=== PATIENT | male | born 1960 | race African-American/Black ===

== ENCOUNTER 2019-02-22 18:19 | Inpatient (IN) | payer SELFPAY ==
[2019-02-22 18:50] LABS: Absolute Lymphocytes (CBC) 1.6 K/uL (0.7-4.9); Absolute Monocytes 0.6 K/uL (0.1-1.3); Absolute Neutrophil 4.3 K/uL (1.8-8.0); Basophils % 0.9 % (0-1.3); Eosinophils % 1.2 % (0-4.4); Hematocrit 38.6 % (39.6-49.0); Lymphocytes % 24.3 % (15.3-44.8); MPV 10.5 fL (7.6-11.3); RBC Red Blood Cell Count 4.16 M/uL (4.33-5.43)
[2019-02-22] MEDS ORDERED: LIDOCAINE 1% W/EPI 1:100,000 MDV 50 ML VIAL ONE (18:53)
--- NOTE | 2019-02-22 19:08 | RAD REPORT ---
EXAM DESCRIPTION: CT - CTHCSPWOC - 02/22/2019 6:56 pm CLINICAL HISTORY: Trauma, head and neck injury. PAIN COMPARISON: No comparisons TECHNIQUE: Axial 5 mm thick images of the head were obtained. Axial 2 mm thick images of the cervical spine were obtained with sagittal and coronal reconstruction images generated and reviewed. All CT scans are performed using dose optimization technique as appropriate and may include automated exposure control or mA/KV adjustment according to patient size. FINDINGS: CT HEAD WITHOUT CONTRAST: No acute hemorrhage, hydrocephalus or extra-axial collection is identified.No areas of brain edema or midline shift. The paranasal sinuses and mastoids are clear.The calvarium is intact. CT CERVICAL SPINE WITHOUT CONTRAST: No fracture or subluxation.Mild upper cervical spondylosis.No prevertebral soft tissues swelling is i dentified. IMPRESSION: No acute intracranial or cervical spine findings.
[2019-02-22] MEDS ORDERED: ONDANSETRON 4 MG/2 ML VIAL ONE ×3 (19:45→23:09)
[2019-02-22] MEDS ORDERED: MORPHINE 4 MG/ML SYR ONE ×2 (19:45→21:40)
--- NOTE | 2019-02-22 20:13 | RAD REPORT ---
EXAM DESCRIPTION: RAD - Knee Right 3 View - 02/22/2019 7:53 pm CLINICAL HISTORY: Syncope, fall, knee pain COMPARISON: None. FINDINGS: No fracture, dislocation or periosteal reaction.Small joint effusion evident. No joint spa ce narrowing. No foreign body or other soft tissue abnormality. IMPRESSION: Small joint effusion with no acute bone findings seen. Clinical concerns for internal derangement or occult bony injury could be further assessed with MR im aging.
--- NOTE | 2019-02-22 20:55 | EDPHYS ---
Physician Documentation [facility] Name: Jose Eduardo Cleary Age: 58 yrs Sex: Male : 1960 Arrival Date: 02/22/2019 Time: 18:23 Bed 27 Private MD: ED Physician Ritchie Garcia HPI: 02/22 18:29 This 58 yrs old Male presents to ER via Unassigned with complaints of syncope. ma2 18:29 The patient presents with feeling faint. Onset: The symptoms/episode began/occurred ma2 suddenly, 1 hour(s) ago. Context: occurred at a store. Associated signs and symptoms: Pertinent positives: head injury, EMS had low BP and bradycardia, Pertinent negatives: ataxia, chest pain, confusion, diaphoresis, head injury. Severity of symptoms: At their worst the symptoms were moderate in the emergency department the symptoms are unchanged. Severity of symptoms: in the emergency department the symptoms have resolved. The patient has not experienced similar symptoms in the past. Historical: - Allergies: 18:25 No Known Allergies; bp - Home Meds: 18:25 None [Active]; bp - PMHx: 18:25 None; bp - Immunization history:: Adult Immunizations up to date. - Social history:: Patient/guardian denies using alcohol, street drugs, The patient lives with family, Smoking status: Patient/guardian denies using tobacco. - Family history:: not pertinent. - Ebola Screening: : Patient negative for fever greater than or equal to 101.5 degrees Fahrenheit, and additional compatible Ebola Virus Disease symptoms Patient denies exposure to infectious person Patient denies travel to an Ebola-affected area in the 21 days before illness onset No symptoms or risks identified at this time. ROS: 18:29 Constitutional: Negative for fever, chills, and weight loss. ma2 18:29 Respiratory: Negative for shortness of breath, cough, wheezing, and pleuritic chest pain, Abdomen/GI: Negative for abdominal pain, nausea, diarrhea, and constipation, Back: Negative for injury and pain, Neuro: Negative for headache, weakness, numbness, tingling, and seizure, Psych: Negative for depression, anxiety, suicide ideation, homicidal ideation, and hallucinations, Endocrine: Negative for neck swelling, polydipsia, polyuria, polyphagia, and marked weight changes. 18:29 Cardiovascular: Positive for syncope, Negative for chest pain, edema, orthopnea, palpitations, paroxysmal nocturnal dyspnea. 18:29 All other systems are negative. Exam: 18:29 Constitutional: This is a well developed, well nourished patient who is awake, alert, ma2 and in no acute distress. Chest/axilla: Normal chest wall appearance and motion. Nontender with no deformity. No lesions are appreciated. Cardiovascular: Regular rate and rhythm with a normal S1 and S2. No gallops, murmurs, or rubs. Normal PMI, no JVD. No pulse deficits. Respiratory: Lungs have equal breath sounds bilaterally, clear to auscultation and percussion. No rales, rhonchi or wheezes noted. No increased work of breathing, no retractions or nasal flaring. Abdomen/GI: Soft, non-tender, with normal bowel sounds. No distension or tympany. No guarding or rebound. No evidence of tenderness throughout. MS/ Extremity: Pulses equal, no cyanosis. Neurovascular intact. Full, normal range of motion. Neuro: Awake and alert, GCS 15, oriented to person, place, time, and situation. Cranial nerves II-XII grossly intact. Motor strength 5/5 in all extremities. Sensory grossly intact. Cerebellar exam normal. Normal gait. Vital Signs: 18:25 BP 148 / 88; Pulse 68; Resp 14; Temp 98.3; Pulse Ox 100% ; bp 19:20 BP 110 / 78; Pulse 70; Resp 18; Temp 98.2; Pulse Ox 99% on R/A; ea 20:30 BP 115 / 68; Pulse 78; Resp 18; Temp 98; Pulse Ox 100% on R/A; ea 21:30 BP 110 / 70; Pulse 80; Resp 18; Pulse Ox 99% on R/A; ea 22:30 BP 102 / 83; Pulse 95; Resp 18; Pulse Ox 100% on R/A; ea 23:31 BP 104 / 58; Pulse 84; Resp 18; Pulse Ox 99% on R/A; ea 04 00:00 BP 105 / 50; Pulse 84; Resp 18; Pulse Ox 98% ; ea Laceration: 02/22 18:31 Wound Repair of 3cm ( 1.2in ) subcutaneous laceration to scalp. Distal ma2 neuro/vascular/tendon intact. Anesthesia: Local anesthetic administered with 10 mls of 1% lidocaine w/ Epi. Wound prep: Extensive cleansing. Skin closed with 5 1-0 Kirk using simple sutures and sterile technique. Dressed with Bacitracin, 4x4's. Patient tolerated well. MDM: 18:23 Patient medically screened. [facility] 18:29 Differential diagnosis: head injury, hyperventilation, hypovolemia, idiopathic ma2 dizziness. 20:49 Data reviewed: vital signs, nurses notes. Counseling: I had a detailed discussion with [facility] the patient and/or guardian regarding: the historical points, exam findings, and any diagnostic results supporting the discharge/admit diagnosis, the presence of at least one elevated blood pressure reading (>120/80) during this emergency department visit, the need for further work-up and treatment in the hospital. Response to treatment: the patient's symptoms have markedly improved after treatment. ED course: discussed with dr. winters . 02/22 18:26 Order name: UDS [facility] 02/22 18:26 Order name: Basic Metabolic Panel [facility] 02/22 18:26 Order name: CBC with Diff; Complete Time: 19:35 [facility] 02/22 18:26 Order name: Ckmb [facility] 02/22 18:26 Order name: CPK [facility] 02/22 18:26 Order name: Hepatic Function [facility] 02/22 18:26 Order name: Lipase [facility] 02/22 18:26 Order name: Magnesium [facility] 02/22 18:26 Order name: Protime (+inr) [facility] 02/22 18:26 Order name: Ptt, Activated [facility] 02/22 18:26 Order name: Troponin (emerg Dept Use Only) [facility] 02/22 21:13 Order name: Lipid Profile [facility] 02/22 21:13 Order name: Lipid Profile [facility] 02/22 21:13 Order name: Troponin I [facility] 02/22 18:26 Order name: CT Head C Spine; Complete Time: 19:35 [facility] 02/22 18:26 Order name: Dressing - Wound: please stapler to bedside ; Complete Time: 18:42 [facility] 02/22 18:26 Order name: Call for Old EKG [facility] 02/22 18:26 Order name: EKG; Complete Time: 18:27 [facility] 02/22 19:01 Order name: XRAY Knee RIGHT 3 view; Complete Time: 20:31 02/22 21:13 Order name: CONS Physician Consult [facility] 02/22 21:13 Order name: Echo with Doppler [facility] 02/22 21:13 Order name: Troponin I [facility] 02/22 21:13 Order name: Troponin I [facility] 02/22 23:17 Order name: Urine Dipstick--Ancillary (enter results) ar5 02/22 23:59 Order name: Urine Dipstick-Ancillary [facility] 02/22 18:26 Order name: Gloves, Sterile; Complete Time: 18:42 ma2 02/22 18:26 Order name: Setup Suture Tray; Complete Time: 18:42 ma2 02/22 18:26 Order name: Cardiac monitoring; Complete Time: 18:37 ma2 02/22 18:26 Order name: EKG - Nurse/Tech; Complete Time: 18:37 ma2 02/22 18:26 Order name: IV Saline Lock; Complete Time: 18:38 ma2 02/22 18:26 Order name: Labs collected and sent; Complete Time: 18:38 ma2 02/22 18:26 Order name: NPO; Complete Time: 18:38 ma2 02/22 18:26 Order name: O2 Per Protocol; Complete Time: 18:38 ma2 02/22 18:26 Order name: O2 Sat Monitoring; Complete Time: 18:38 ma2 02/22 18:26 Order name: Urine Dipstick-Ancillary (obtain specimen); Complete Time: 23:59 ma2 Administered Medications: 18:43 Drug: Lidocaine-Epinephrine -1%: (1:100,000) 10 ml {Note: AT B/S.} Volume: 20 ml; bp Route: Infiltration; 19:44 Drug: morphine 4 mg Route: IVP; Site: right antecubital; ea 20:00 Follow up: Response: No adverse reaction; Pain is decreased ea 19:44 Drug: Zofran 4 mg Route: IVP; Site: right antecubital; ea 20:00 Follow up: Response: Marked relief of symptoms ea 21:35 Drug: Zofran 4 mg Route: IVP; Site: right antecubital; ea 22:00 Follow up: Response: No adverse reaction; Pain is decreased ea 21:39 Drug: morphine 4 mg Route: IVP; Site: right antecubital; ea 22:00 Follow up: Response: No adverse reaction; Pain is decreased ea Disposition: 02/22/19 21:57 Hospitalization ordered by Ritchie Winters for Observation. Preliminary diagnosis is Syncope and collapse. - Bed requested for Telemetry/MedSurg (Inpatient). - Status is Observation. ss - Condition is Stable. - Problem is new. - Symptoms are unchanged. UTI on Admission? No Signatures: Dispatcher [employer] EDMS Adenike Shook RN RN ss Rona Piña RN RN ea Peltier, Brian, RN RN Ritchie Garcia MD MD ma2 Robles, Autumn ar5 Corrections: (The following items were deleted from the chart) 20:55 20:54 Hospitalization Ordered by Ritchie Winters MD for Observation. Preliminary ma2 diagnosis is Syncope and collapse. Bed requested for Telemetry/MedSurg (observation). Status is Observation. Condition is Stable. Problem is new. Symptoms are unchanged. UTI on Admission? No. ma2 23:54 21:57 Hospitalization Ordered by Ritchie Winters MD for Observation. Preliminary ar5 diagnosis is Syncope and collapse. Bed requested for Telemetry/MedSurg (observation). Status is Observation. Condition is Stable. Problem is new. Symptoms are unchanged. UTI on Admission? No. ma2 02/23 07:41 02/22 23:54 02/22/2019 21:57 Hospitalization Ordered by Ritchie Winters MD for ss Observation. Preliminary diagnosis is Syncope and collapse. Bed requested for [facility] ER HOLD. Status is Observation. Condition is Stable. Problem is new. Symptoms are unchanged. UTI on Admission? No. ar5 02/23 08:24 07:41 02/22/2019 21:57 Hospitalization Ordered by Ritchie Winters MD for Observation. ss Preliminary diagnosis is Syncope and collapse. Bed requested for Telemetry/MedSurg (Inpatient). Status is Observation. Condition is Stable. Problem is new. Symptoms are unchanged. UTI on Admission? No. ss
--- NOTE | 2019-02-22 20:55 | ER ---
Nurse's Notes [facility] Name: Jose Eduardo Cleary Age: 58 yrs Sex: Male : 1960 Arrival Date: 02/22/2019 Time: 18:23 Bed 27 Private MD: Diagnosis: Syncope and collapse Presentation: 02/22 18:25 Presenting complaint: EMS states: SYNCOPAL FALL AT [facility]. Transition of care: bp patient was not received from another setting of care. Onset of symptoms was February 22, 2019 at 18:00. Risk Assessment: Do you want to hurt yourself or someone else? Patient reports no desire to harm self or others. Initial Sepsis Screen: Does the patient meet any 2 criteria? No. Patient's initial sepsis screen is negative. Does the patient have a suspected source of infection? No. Patient's initial sepsis screen is negative. Care prior to arrival: Medication(s) given: ASA, 81 mg, x 4, IV initiated. 18 GA, in the right antecubital area. 18:25 Method Of Arrival: EMS: [facility] bp 18:25 Acuity: JAZIEL 3 bp Triage Assessment: 18:25 General: Appears in no apparent distress. comfortable, slender, Behavior is bp cooperative, appropriate for age, anxious. Pain: Complains of pain in back of head. EENT: No signs and/or symptoms were reported regarding the EENT system. Neuro: Level of Consciousness is awake, alert, obeys commands, Oriented to person, place, time, situation, Appropriate for age. Cardiovascular: Rhythm is sinus rhythm. Respiratory: Airway is patent Respiratory effort is even, unlabored, Respiratory pattern is regular, symmetrical. GI: No signs and/or symptoms were reported involving the gastrointestinal system. : No signs and/or symptoms were reported regarding the genitourinary system. Derm: No deficits noted. Musculoskeletal: Circulation, motion, and sensation intact. Range of motion: intact in all extremities. Historical: - Allergies: 18:25 No Known Allergies; bp - Home Meds: 18:25 None [Active]; bp - PMHx: 18:25 None; bp - Immunization history:: Adult Immunizations up to date. - Social history:: Patient/guardian denies using alcohol, street drugs, The patient lives with family, Smoking status: Patient/guardian denies using tobacco. - Family history:: not pertinent. - Ebola Screening: : Patient negative for fever greater than or equal to 101.5 degrees Fahrenheit, and additional compatible Ebola Virus Disease symptoms Patient denies exposure to infectious person Patient denies travel to an Ebola-affected area in the 21 days before illness onset No symptoms or risks identified at this time. Screenin:48 Abuse screen: Denies threats or abuse. Denies injuries from another. Nutritional bp screening: No deficits noted. Tuberculosis screening: No symptoms or risk factors identified. Fall Risk None identified. Assessment: 18:25 General: SEE TRIAGE NOTE. bp 19:01 Reassessment: PT RETURNED FROM RAD. bp 19:15 General: Appears in no apparent distress. Behavior is calm, cooperative, appropriate ea for age. Pain: Complains of pain in back of head. Neuro: Level of Consciousness is awake, alert, obeys commands, Oriented to person, place, time, situation. Cardiovascular: Patient's skin is warm and dry. Respiratory: Airway is patent Respiratory effort is even, unlabored, Respiratory pattern is regular, symmetrical. Derm: Skin is pink, warm \T\ dry. Injury Description: Laceration sustained to back of head is clean, 2.6 to 7.5 cm long. 20:00 Reassessment: Patient and/or family updated on plan of care and expected duration. Pain ea level reassessed. Patient is alert, oriented x 3, equal unlabored respirations, skin warm/dry/pink. 21:41 Reassessment: Patient and/or family updated on plan of care and expected duration. Pain ea level reassessed. Patient is alert, oriented x 3, equal unlabored respirations, skin warm/dry/pink. 22:50 Reassessment: Patient and/or family updated on plan of care and expected duration. Pain ea level reassessed. Pt resting with eyes closed respirations even and unlabored. Chest expansions even and symmetrical. 23:15 Reassessment: Patient and/or family updated on plan of care and expected duration. Pain ea level reassessed. Patient is alert, oriented x 3, equal unlabored respirations, skin warm/dry/pink. Pt complaining of nausea, Dr. Barclay notified, verbal order obtained for Zofran 4 mg q 4 hours. Medication administered, pt tolerated well. 02/23 00:50 Reassessment: Patient and/or family updated on plan of care and expected duration. Pain ea level reassessed. Patient is alert, oriented x 3, equal unlabored respirations, skin warm/dry/pink. Vital Signs: 02/22 18:25 BP 148 / 88; Pulse 68; Resp 14; Temp 98.3; Pulse Ox 100% ; bp 19:20 BP 110 / 78; Pulse 70; Resp 18; Temp 98.2; Pulse Ox 99% on R/A; ea 20:30 BP 115 / 68; Pulse 78; Resp 18; Temp 98; Pulse Ox 100% on R/A; ea 21:30 BP 110 / 70; Pulse 80; Resp 18; Pulse Ox 99% on R/A; ea 22:30 BP 102 / 83; Pulse 95; Resp 18; Pulse Ox 100% on R/A; ea 23:31 BP 104 / 58; Pulse 84; Resp 18; Pulse Ox 99% on R/A; ea 02/23 00:00 BP 105 / 50; Pulse 84; Resp 18; Pulse Ox 98% ; ea ED Course: 02/22 18:23 Patient arrived in ED. tw2 18:23 Ritchie Garcia MD is Attending Physician. ma2 18:25 Arm band placed on. bp 18:25 Patient has correct armband on for positive identification. Bed in low position. Call bp light in reach. Side rails up X2. Adult w/ patient. 18:25 Maintain EMS IV. Dressing intact. Good blood return noted. Site clean \T\ dry. Gauge \T\ bp site: 18 G R AC. 18:37 Daniel Robledo, RN is Primary Nurse. bp 18:45 Triage completed. bp 18:57 CT Head C Spine In Process Unspecified. EDMS 19:53 XRAY Knee RIGHT 3 view In Process Unspecified. EDMS 20:54 Ritchie Barclay MD is Hospitalizing Provider. ma2 21:56 Ritchie Barclay MD is Hospitalizing Provider. ma2 02/23 01:20 No provider procedures requiring assistance completed. Patient admitted, IV remains in ea place. Administered Medications: 02/22 18:43 Drug: Lidocaine-Epinephrine -1%: (1:100,000) 10 ml {Note: AT B/S.} Volume: 20 ml; bp Route: Infiltration; 19:44 Drug: morphine 4 mg Route: IVP; Site: right antecubital; ea 20:00 Follow up: Response: No adverse reaction; Pain is decreased ea 19:44 Drug: Zofran 4 mg Route: IVP; Site: right antecubital; ea 20:00 Follow up: Response: Marked relief of symptoms ea 21:35 Drug: Zofran 4 mg Route: IVP; Site: right antecubital; ea 22:00 Follow up: Response: No adverse reaction; Pain is decreased ea 21:39 Drug: morphine 4 mg Route: IVP; Site: right antecubital; ea 22:00 Follow up: Response: No adverse reaction; Pain is decreased ea Outcome: 20:54 Decision to Hospitalize by Provider. ma2 21:57 Decision to Hospitalize by Provider. ma2 23:00 Condition: stable ea 23:00 Instructed on the need for admit. 02/23 00:45 Admitted to ER Hold. Please see [facility] for further documentation. ea 08:14 Admitted to Tele accompanied by tech, via stretcher, room 210, Report called to kassidy Rodriguez RN 08:24 Patient left the ED. ss Signatures: Dispatcher [employer] EDShoshana Mccormick RN Adenike Diaz RN RN ss Wise, Tara, RN RN tw2 Rona Piña RN RN ea Peltier, Brian, RN Ritchie Villalpando MD MD ar2
[2019-02-22] MEDS ORDERED: ACETAMINOPHEN 500 MG TAB PO PRN (21:10)
[2019-02-22 21:59] LABS: Protime INR 1.11
[2019-02-22 22:15] LABS: ALT/SGPT 157 U/L (12-78); Albumin 3.7 g/dL (3.4-5.0); Alkaline Phosphatase 77 U/L (45-117); BUN Blood Urea Nitrogen 18 mg/dL (7-18); Bicarbonate 26 mmol/L (21-32); Bilirubin Direct 1.1 mg/dL (0-0.2); Bilirubin Total 1.3 mg/dL (0.2-1.0); CKMB Creatine Kinase MB 4.4 ng/mL (0.3-3.6); Creatine Phosphokinase 292 U/L (39-308); Glucose Level 114 mg/dL (74-106); Lipase 950 U/L (73-393); Potassium 3.9 mmol/L (3.5-5.1); Protein, Total 8.3 g/dL (6.4-8.2); Sodium Level 139 mmol/L (136-145); Troponin (Emerg Dept Use Only) < 0.02 ng/mL (0.0-0.045)
[2019-02-22 22:16] LABS: AST/SGOT 475 U/L (15-37)
[2019-02-22 23:00] LABS: Barbiturates NEGATIVE (NEGATIVE); Benzodiazepines NEGATIVE (NEGATIVE); Cocaine NEGATIVE (NEGATIVE); METHAMPHETAM NEGATIVE (NEGATIVE); Methadone NEGATIVE (NEGATIVE); Opiates POSITIVE (NEGATIVE); Phencyclidine NEGATIVE (NEGATIVE); THC Cannibis NEGATIVE (NEGATIVE)
[2019-02-22 23:59] LABS: Urine Blood TRACE (NEG); Urine Glucose NEGATIVE (NEG); Urine Protein 2+ (NEG); Urine pH 5.5 (5.0-7.0)
[2019-02-23] MEDS: ALPRAZOLAM 0.25 MG TABLET PO PRN (02:08)
[2019-02-23] MEDS ORDERED: ALPRAZOLAM 0.25 MG TABLET ONE (02:08)
[2019-02-23] MEDS: NA CHLORIDE 0.9% 1,000 ML IV SCH ×3 (07:00→17:00)
--- NOTE | 2019-02-23 08:47 | RAD REPORT ---
EXAM DESCRIPTION: US - Abdomen Exam Complete - 02/23/2019 7:18 am CLINICAL HISTORY: Abdominal pain COMPARISON: none FINDINGS: The liver has an increased echotexture. Hepatic cysts. Largest 4.6 The gallbladder is been removed. Common bile duct is dilated measuring 18 millimeters The pancreas appears grossly normal in size and echotexture. Pancreatic duct appears dilated. The right kidney measures 12 centimeters with a normal echotexture. The left kidney measures 9 centimeters with a normal echotexture. The spleen measures 10 centimeters. The abdominal aorta is ectatic with an AP diameter of 2.5 centimeters. The vena Cava appears unremark able IMPRESSION: Increased hepatic echotexture consistent with fatty infiltration Dilatation of the common and pancreatic ducts. CT scan with IV contrast is recommended to evaluate th e region of the pancreatic head
[2019-02-23] MEDS: ASPIRIN EC 81 MG TAB PO SCH (09:00)
[2019-02-23] MEDS: MORPHINE 4 MG/ML SYR IV PRN ×3 (09:46→21:04)
[2019-02-23] MEDS: ONDANSETRON 4 MG/2 ML VIAL IV PRN (09:47)
[2019-02-23] MEDS: ENOXAPARIN 40 MG/0.4 ML SQ SCH (10:33)
--- NOTE | 2019-02-23 10:48 | EKG ---
Test Date: 2019-02-22 Test Time: 18:22:47 [employer] [facility] Associate: BP MEASUREMENT RESULTS: Intervals: Rate: 65 MT: 188 QRSD: 84 QT: 422 QTc: 438 [place]: P: 73 MT: 188 QRS: 10 T: 43 INTERPRETIVE STATEMENTS: Normal sinus rhythm Biatrial enlargement Left ventricular hypertrophy Abnormal ECG No previous ECG available for comparison Electronically Signed On 02-23-19 10:47:50 CDT by Bear Yousif
[2019-02-23 10:50] LABS: Absolute Lymphocytes (CBC) 0.8 K/uL (0.7-4.9); Absolute Monocytes 0.5 K/uL (0.1-1.3); Absolute Neutrophil 4.9 K/uL (1.8-8.0); Basophils % 0.4 % (0-1.3); Eosinophils % 1.3 % (0-4.4); Hematocrit 41.2 % (39.6-49.0); MPV 10.2 fL (7.6-11.3); Monocytes % 7.7 % (3.3-12.3); RBC Red Blood Cell Count 4.55 M/uL (4.33-5.43)
[2019-02-23 10:54] LABS: Protime INR 1.06
--- NOTE | 2019-02-23 10:56 | ECHO ---
HEIGHT: 6 ft 0 in WEIGHT: 155 lb 0 oz DATE OF STUDY: 02/23/[address]: 2-DIMENSIONAL: YES M.MODE: YES DOPPLER: YES COLOR FLOW: YES TDS: NO PORTABLE: NO DEFINITY: NO BUBBLE STUDY: NO DIAGNOSIS: SYNCOPE CARDIAC HISTORY: CATHERIZATION: NO SURGERY: NO PROSTHETIC VALVE: NO PACEMAKER: NO MEASUREMENTS (cm) DIASTOLIC (NORMALS) SYSTOLIC (NORMALS) IVSd 1.0 (0.6-1.2) LA Diam 3.2 (1.9-4.0) LVEF 50% LVIDd 4.2 (3.5-5.7) LVIDs 3.1 (2.0-3.5) %FS 25% LVPWd 1.1 (0.6-1.2) Ao Diam 3.4 (2.0-3.7) 2 DIMENSIONAL ASSESSMENT: RIGHT ATRIUM: NORMAL LEFT ATRIUM: NORMAL RIGHT VENTRICLE: NORMAL LEFT VENTRICLE: NORMAL TRICUSPID VALVE: NORMAL MITRAL VALVE: NORMAL PULMONIC VALVE: NORMAL AORTIC VALVE: NORMAL PERICARDIAL EFFUSION: NONE AORTIC ROOT: NORMAL LEFT VENTRICULAR WALL MOTION: NORMAL. DOPPLER/COLOR FLOW: MILD MITRAL REGURGITATION. TRACE TRICUSPID REGURGITATION. NORMAL RIGHT VENTRICULAR SYSTOLIC PRESSURE. COMMENTS: NORMAL 2D ECHOCARDIOGRAM. MILD MITRAL REGURGITATION. TRACE TRICUSPID REGURGITATION. TECHNOLOGIST: EDUARDO AYALA
[2019-02-23 11:29] LABS: ALT/SGPT 168 U/L (12-78); Albumin 3.9 g/dL (3.4-5.0); Alkaline Phosphatase 76 U/L (45-117); BUN Blood Urea Nitrogen 16 mg/dL (7-18); Bicarbonate 26 mmol/L (21-32); Glucose Level 110 mg/dL (74-106); Lipase 258 U/L (73-393); Magnesium 2.2 mg/dL (1.8-2.4); Phosphorus 3.3 mg/dL (2.5-4.9); Protein, Total 8.4 g/dL (6.4-8.2); Sodium Level 140 mmol/L (136-145)
[2019-02-23 11:31] LABS: AST/SGOT 390 U/L (15-37)
[2019-02-23] MEDS ORDERED: LORazepam 2 MG/ML VIAL IV ONE (13:13)
--- NOTE | 2019-02-23 13:21 | P.HP ---
Certification for Inpatient Patient admitted to: Inpatient With expected LOS: >2 Midnights Patient will require the following post-hospital care: None Practitioner: I am a practitioner with admitting privileges, knowledge of patient current condition, hospital course, and medical plan of care. Services: Services provided to patient in accordance with Admission requirements found in Title 42 Section 412.3 of the Code of Federal Regulations Patient History Date of Service: 02/22/19 Reason for admission: SYNCOPE AND COLLAPSE History of Present Illness: Patient is a 58-year-old gentleman [facility]. He finally came around but had a scalp laceration. He was unresponsive for a couple of minutes. Patient was brought to the ER by EMS. He was worked up in the emergency room and was found to be hypotensive and bradycardic initially. His vital signs improved. However, he is still feeling dizzy and has a headache. Unsure as to why he had the sudden collapse. he contributes some of it to the fact that he has been working quite a bit. In the last 2 weeks he states he work almost 100 hr. He will be admitted to the hospital for further workup Allergies aspirin Allergy (Verified 02/23/19 09:22) Itching iodine Allergy (Verified 02/23/19 13:09) Anaphylaxis Home Medications: NK [No Home Meds] 02/23/19 - Past Medical/Surgical History Has patient received pneumonia vaccine in the past: No Past Medical History: Patient denies medical history Past Surgical History: Patient denies surgical history - Family History Father Family History: Reviewed- Non-Contributory - Social History Smoking Status: Never smoker Alcohol use: Yes CD- Drugs: No Caffeine use: Yes Place of Residence: Home Review of Systems 10-point ROS is otherwise unremarkable Physical Examination - Vital Signs Temperature: 97.6 F Blood Pressure: 171/100 Pulse: 63 Respirations: 20 Pulse Ox (%): 98 - Physical Exam General: Alert, In no apparent distress, Oriented x3 HEENT: Atraumatic, PERRLA, Mucous membr. moist/pink, EOMI, Sclerae nonicteric Neck: Supple, 2+ carotid pulse no bruit, No LAD, Without JVD or thyroid abnormality Respiratory: Clear to auscultation bilaterally, Normal air movement Cardiovascular: Regular rate/rhythm, Normal S1 S2 Gastrointestinal: Normal bowel sounds, Soft and benign, Non-distended, No tenderness Musculoskeletal: No clubbing, No swelling, No tenderness Integumentary: No rashes Neurological: Normal gait, Normal speech, Normal strength at 5/5 x4 extr, Normal tone, Sensation intact, Cranial nerves 3-12 intact, Normal affect Lymphatics: No axilla or inguinal lymphadenopathy - Studies Laboratory Data (last 24 hrs) 02/22/19 21:40: PT 13.0 H, INR 1.11, APTT 29.0 02/22/19 21:40: Sodium 139, Potassium 3.9, BUN 18, Creatinine 1.42 H, Glucose 114 H, Magnesium 2.0, Total Bilirubin 1.3 H, AST 475 H*, ALT 157 H, Alkaline Phosphatase 77, Lipase 950 H 02/22/19 18:35: WBC 6.6, Hgb 12.9 L, Hct 38.6 L, Plt Count 177 Assessment & Plan - Problems (Diagnosis) (1) Syncope and collapse Current Visit: Yes Status: Acute (2) Scalp laceration Current Visit: Yes Status: Acute - Plan The plan: 1. Echocardiogram 2. Carotid Doppler 3. cardiac workup 4. monitor on telemetry 5. Monitor electrolytes 6. GI/DVT prophylaxis Discharge Plan: Home Plan to discharge in: Greater than 2 days - Advance Directives Does patient have a Living Will: No Does patient have a Durable POA for Healthcare: No - Code Status/Comfort Care Code Status Assessed: Yes Code Status: Full Code Critical Care: No Time Spent Managing PTS Care (In Minutes): 40
--- NOTE | 2019-02-23 14:50 | CON ---
History Of Present Illness: Mr. Cleary was having a normal day, went to work. Ate, drink normally. Function fine at work. About 4:30 p.m. yesterday, he was standing in [employer]. 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 He felt like he needed to sit down, started walking towards a chair, did not make it. He was uncons cious for a minute or two. No bladder or bowel incontinence. He has a laceration on the left side o f his scalp, injury to his right knee with an effusion, but no fractures. CT of the head and spine s hows no abnormalities. The patient has no previous history of syncope. He has a history of some kin d of kidney disease. 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 Apparently he had plasmapheresis some years ago and apparently now he does not need to see any kidney doctors. He has never had myocardial infarction or stroke. His home medications a re none listed. He has no allergies. He smoked cigars occasionally. Drinks alcohol on weekends, us ually 1 glass of wine limit. No illegal drug use. No previous history of syncope, head injury, seiz ure disorder. Physical Examination: General: He is alert, oriented, pleasant, not in distress. Lungs: Clear. Cardiac: Normal. Neck: Carotids, no bruit. Extremities: Normal. Impression: My impression is that the patient probably had vasodepressor syncope. It can sometimes be triggered by standing in one position for a long time. I think he should have an event monitor, e cho and a carotid Doppler and if we do not find anything, we can encourage him to stay well hydrated and do outpatient testing. So far on telemetry, there has not been anything. On his blood work, tro ponins are normal, but liver function tests are abnormal. Total bilirubin and direct bilirubin are b oth mildly elevated and the AST is elevated at 475. Lipase is elevated. I wonder if he has some underlying abdominal process going and number of things are possible that may have contributed greatl y to his vasodepressor syncope. SH/MODL Voice ID: [id number] Report ID: [id number]
--- NOTE | 2019-02-23 18:53 | RAD REPORT ---
EXAM DESCRIPTION: MRI - Mri Abdomen W/Wo Cont - 02/23/2019 6:26 pm CLINICAL HISTORY: Pancreatic mass, pancreatic and biliary duct abnormal dilatation, abnormal ultraso und study ; prior cholecystectomy COMPARISON: Ultrasound February 23 TECHNIQUE: Multiplanar imaging of the abdomen performed using T1 weighted, T2 weighted, T1 inphase/o ut of phase imaging, T2 haste fat saturation and postcontrast T1 fat saturation sequencing. A 16 mill iliter MultiHance contrast volume was utilized. FINDINGS: Liver is normal in size. There are numerous variably sized oval and round masses scattered throughout the liver parenchyma. Most are under 1 centimeter in size. Largest is 5 cm in the postero superior right lobe. The show homogeneous hypointense T1 signal and homogeneous hyperintense T2 signa l. No solid mass or enhancing mass of the liver parenchyma seen. No rim or central enhancement on pos tcontrast imaging. No splenic abnormality. No renal or adrenal suspicious finding. Significant extrahepatic biliary tree dilatation is present up to 19 mm in diameter. Pancreatic duct is dilated as well. Dilatation extends all the way into the head of the pancreas to the sphincter of Oddi region. No mass in the head of the pancreas identified. No duodenal mass or wall thickening. No duct stones are identifiable. Body and tail of the pancreas show no suspicious findings. There is no peripancreatic edema. Oral vessels show normal enhancement pattern. No ascites or lymphadenopathy. Imaged portions of the b owel show no suspicious findings. IMPRESSION: Biliary tree dilatation to 18 mm with dilatation of the pancreatic duct. Dilatation extends all the way to the sphincter of Oddi. No pancreatic or duodenal mass or focal abno rmality. Biliary tree dilatation can occur following cholecystectomy. However, dilatation does not usually jan ched this degree an usually does not include pancreatic duct dilatation. No duct stone is identified. Patient could have an ampullary mass that is below MR resolution or a st ricture at the ampulla. Direct visualization with ERCP may be needed. Multiple benign liver cysts.
--- NOTE | 2019-02-23 19:01 | P.PN ---
Subjective Date of Service: 02/23/19 Chief Complaint: SYNCOPE AND COLLAPSE Pt seen and examined at bedside. Chart reviewed. Case DW in detail with GI and radiology. Denies Fever, chill, N/V or any other concerns. Review of Systems 10-point ROS is otherwise unremarkable Physical Examination - Vital Signs Temperature: 98.1 F Blood Pressure: 153/96 Pulse: 71 Respirations: 20 Pulse Ox (%): 95 - Physical Exam General: Alert, In no apparent distress HEENT: Atraumatic, PERRLA, EOMI, Scleral icterus Neck: Supple, JVD not distended Respiratory: Clear to auscultation bilaterally, Normal air movement Cardiovascular: Regular rate/rhythm, Normal S1 S2 Gastrointestinal: Normal bowel sounds, No tenderness, Tenderness (RUQ ) Musculoskeletal: No tenderness Integumentary: No rashes Neurological: Normal speech, Normal tone, Normal affect Lymphatics: No axilla or inguinal lymphadenopathy - Studies Laboratory Data (last 24 hrs) 02/22/19 21:40: PT 13.0 H, INR 1.11, APTT 29.0 02/22/19 21:40: Sodium 139, Potassium 3.9, BUN 18, Creatinine 1.42 H, Glucose 114 H, Magnesium 2.0, Total Bilirubin 1.3 H, AST 475 H*, ALT 157 H, Alkaline Phosphatase 77, Lipase 950 H Medications List Reviewed: Yes Assessment And Plan - Current Problems (Diagnosis) (1) Elevated LFTs Current Visit: Yes Status: Acute Plan: Elevated LFt's with Abnormal Abd US with CBD dilation at 18mm and pancreatic Duct dilation 10mm -MRI of the abdomen with CBD dilation noted again. Concern for stricture vs mass at the ampula -Started transfer to the [facility] for ERCP for possible evaluation of CBD and pancreatic duct. (2) Scalp laceration Current Visit: Yes Status: Acute Plan: S.P Fall with scalp Laceration -Stable now -Site C/D/I with suture in place Qualifiers: Encounter type: initial encounter Qualified Code(s): S01.01XA - Laceration without foreign body of scalp, initial encounter (3) Syncope and collapse Current Visit: Yes Status: Acute Plan: Syncopal Work up most likely 2.2 to Cardiac vs abdominal infection -ECHO, Carotid Doppler pending -Cardiology consulted. appreciate Reccs -No further workup -PT/OT consulted. Discharge Plan: Home Plan to discharge in: Greater than 2 days - Code Status/Comfort Care Code Status Assessed: Yes Critical Care: No
--- NOTE | 2019-02-23 19:07 | RAD REPORT ---
EXAM DESCRIPTION: - CP - 02/23/2019 6:50 pm CLINICAL HISTORY: Syncope COMPARISON: None. TECHNIQUE: Real-time sonographic evaluation of both carotid systems was performed. Cuellar scale and Do ppler interrogation were performed with waveform tracing bilaterally. FINDINGS: Normal high resistance waveforms are noted in both external carotid arteries. The common c arotid arteries and internal carotid arteries show normal low resistance waveforms. No significant plaque formation is seen. Peak systolic and end diastolic velocity values and the ICA/ CCA ratios are in the non-hemodynamically significant range. Antegrade flow seen in both vertebral arteries. Velocity values and ratios were recorded and are retained in the patient's imaging records. IMPRESSION: No significant atherosclerotic changes noted. No evidence of a hemodynamically significant stenosis.
--- NOTE | 2019-02-23 21:12 | RAD REPORT ---
EXAM DESCRIPTION: MRI - Cholangiogram - 02/23/2019 8:46 pm CLINICAL HISTORY: Abnormal liver function, biliary tree dilatation, abnormal ultrasound COMPARISON: Abdomen ultrasound same date TECHNIQUE: Axial and coronal heavily T2 weighted sequences were obtained. Coronal T2 HASTE fat satur ation static and coronal multiplane reconstruction imaging generated and reviewed. Horizontal and juan jose tical axis rotational views obtained using maximum intensity projection (MIP) protocol. FINDINGS: Intrahepatic and extrahepatic biliary tree dilatation identified. Common bile duct is dila shoaib up to 18 mm with dilatation extending into the head of the pancreas. There is no duct stone, stri cture or mass. Pancreatic duct dilatation is present. Multiple liver cysts are identified. Cholecystectomy clip artifact is present. IMPRESSION: Biliary tree dilatation to 18 mm with no stricture, mass or duct stone. Pancreatic duct dilatation. Stricture at the ampulla or small mass at or near the ampulla is possible. Biliary tree dilatation fo llowing cholecystectomy is not unusual but does not usually occur to this degree nor include pancreat ic duct dilatation.
[2019-02-24] MEDS: ALPRAZOLAM 0.25 MG TABLET PO PRN ×2 (01:25→21:41)
[2019-02-24] MEDS: NA CHLORIDE 0.9% 1,000 ML IV SCH ×3 (01:29→23:48)
[2019-02-24] MEDS: ASPIRIN EC 81 MG TAB PO SCH (09:02)
[2019-02-24] MEDS: MORPHINE 4 MG/ML SYR IV PRN ×2 (09:03→13:55)
[2019-02-24] MEDS: ONDANSETRON 4 MG/2 ML VIAL IV PRN (09:03)
[2019-02-24] MEDS: ENOXAPARIN 40 MG/0.4 ML SQ SCH (09:04)
--- NOTE | 2019-02-24 11:36 | PN ---
Mr. Cleary is 58. He has had no arrhythmia. Normal EKG. Normal enzymes. Normal carotid ultrasound, cardiac ultrasound and other vascular studies. At this point the cause of his syncope is uncertain, it most likely could be a vasodepressor syncope. We do not really know why his liver functions were elevated, so looking into that might be valuable to do. I am not sure [facility]. In my opinion syncope workup is completed and I suspect he had vasovagal or vasodep ressor syncope, perhaps from abdominal process. RUBI/NISA Voice ID: [id number] Report ID: [id number]
[2019-02-24 13:38] LABS: Absolute Lymphocytes (CBC) 1.1 K/uL (0.7-4.9); Absolute Monocytes 0.4 K/uL (0.1-1.3); Absolute Neutrophil 3.3 K/uL (1.8-8.0); Basophils % 0.8 % (0-1.3); Eosinophils % 1.2 % (0-4.4); Lymphocytes % 21.8 % (15.3-44.8); MPV 10.1 fL (7.6-11.3); Monocytes % 8.4 % (3.3-12.3); RBC Red Blood Cell Count 3.87 M/uL (4.33-5.43)
[2019-02-24 13:57] LABS: Bilirubin Total 0.5 mg/dL (0.2-1.0); Carcinoembryonic Antigen 3.9 ng/mL (0-5.0); Potassium 4.2 mmol/L (3.5-5.1); Protein, Total 7.1 g/dL (6.4-8.2)
--- NOTE | 2019-02-24 15:44 | P.PN ---
Subjective Date of Service: 02/24/19 Chief Complaint: SYNCOPE AND COLLAPSE Pt seen and examined at bedside. Chart reviewed. Case DW in detail with GI and radiology. Pending bed at [facility]. Has been accepted by GI and hospitalist. Denies Fever, chill, N/V or any other concerns. Review of Systems 10-point ROS is otherwise unremarkable Physical Examination - Vital Signs Temperature: 98.3 F Blood Pressure: 148/87 Pulse: 65 Respirations: 20 Pulse Ox (%): 97 - Physical Exam General: Alert, In no apparent distress HEENT: Atraumatic, PERRLA, EOMI, Scleral icterus Neck: Supple, JVD not distended Respiratory: Clear to auscultation bilaterally, Normal air movement Cardiovascular: Regular rate/rhythm, Normal S1 S2 Gastrointestinal: Normal bowel sounds, Tenderness Musculoskeletal: No tenderness Integumentary: No rashes Neurological: Normal speech, Normal tone, Normal affect Lymphatics: No axilla or inguinal lymphadenopathy - Studies Medications List Reviewed: Yes Assessment And Plan - Current Problems (Diagnosis) (1) Elevated LFTs Current Visit: Yes Status: Acute Plan: Elevated LFt's with Abnormal Abd US with CBD dilation at 18mm and pancreatic Duct dilation 10mm -MRI of the abdomen with CBD dilation. Concern for stricture vs mass at the ampulla or pancreatic head -Started transfer to the [facility] for ERCP for possible evaluation of CBD and pancreatic duct. -Pending Bed at (2) Scalp laceration Current Visit: Yes Status: Acute Plan: S.P Fall with scalp Laceration -Stable now -Site C/D/I with suture in place Qualifiers: Encounter type: initial encounter Qualified Code(s): S01.01XA - Laceration without foreign body of scalp, initial encounter (3) Syncope and collapse Current Visit: Yes Status: Acute Plan: Syncopal Work up most likely 2.2 to Cardiac vs abdominal infection -ECHO, Carotid Doppler pending -Cardiology consulted. appreciate Reccs -No further workup -PT/OT consulted. Discharge Plan: Home Plan to discharge in: Greater than 2 days - Code Status/Comfort Care Code Status Assessed: Yes Critical Care: No
[2019-02-24] MEDS: TOPIRAMATE 25 MG TAB PO SCH ×2 (17:00→20:41)
[2019-02-25] MEDS: TOPIRAMATE 25 MG TAB PO SCH ×3 (00:13→08:59)
[2019-02-25 04:55] LABS: Absolute Lymphocytes (CBC) 1.2 K/uL (0.7-4.9); Absolute Monocytes 0.6 K/uL (0.1-1.3); Absolute Neutrophil 4.1 K/uL (1.8-8.0); Basophils % 0.7 % (0-1.3); Eosinophils % 1.3 % (0-4.4); Hematocrit 33.7 % (39.6-49.0); Lymphocytes % 20.3 % (15.3-44.8); MPV 10.6 fL (7.6-11.3); Monocytes % 10.1 % (3.3-12.3); RBC Red Blood Cell Count 3.73 M/uL (4.33-5.43)
[2019-02-25 05:04] LABS: Albumin 2.9 g/dL (3.4-5.0); Bilirubin Total 0.4 mg/dL (0.2-1.0); Protein, Total 6.7 g/dL (6.4-8.2)
[2019-02-25] MEDS: ENOXAPARIN 40 MG/0.4 ML SQ SCH (08:58)
[2019-02-25] MEDS: ASPIRIN EC 81 MG TAB PO SCH (08:58)
[2019-02-25] MEDS: NA CHLORIDE 0.9% 1,000 ML IV SCH (09:01)
--- NOTE | 2019-02-25 15:54 | P.DS ---
Admission Date: 02/22/19 Discharge Date: 02/25/19 Disposition: AMA-LEFT AGAINST MEDICAL ADVIC Reason for Admission: SYNCOPE AND COLLAPSE - Problems (1) Elevated LFTs Status: Acute (2) Scalp laceration Status: Acute Qualifiers: Encounter type: initial encounter Qualified Code(s): S01.01XA - Laceration without foreign body of scalp, initial encounter (3) Syncope and collapse Status: Acute Brief History of Present Illness: Patient is a 58-year-old gentleman [facility] and [facility]. He finally came around but had a scalp laceration. He was unresponsive for a couple of minutes. Patient was brought to the ER by EMS. He was worked up in the emergency room and was found to be hypotensive and bradycardic initially. His vital signs improved. However, he is still feeling dizzy and has a headache. Unsure as to why he had the sudden collapse. he contributes some of it to the fact that he has been working quite a bit. In the last 2 weeks he states he work almost 100 hr. He will be admitted to the hospital for further workup Hospital Course: Overall the patient remained stable Patient initially admitted to the hospital for syncope episode that was most likely secondary to vasovagal symptom. Cardiology was consulted. Patient had extensive workup done for syncope here in the hospital. Brain MRI along with head CT, carotid Dopplers and echocardiogram were all within normal limits. Cardiology did clear the patient to be discharged home. Patient however in the initial labs had elevated LFTs along with T. bili Hernandez and thus abdominal ultrasound was done. Abdominal ultrasound was consistent with CBD and pancreatic duct dilation and concern for ampullary stricture versus mass. MRCP and an MRI of the abdomen was done which was again concerning for ampullary stricture versus mass. At the time GI was consulted. GI however stated that patient will require higher level of care where he can get an ERCP done and possibly biopsy of the mass versus stricture. Patient thus was referred over to [facility] for further treatment. Patient was accepted at [facility] however is pending bed. Patient at that time decided that he no longer wants to wait here in the hospital and will leave the hospital against medical advise that he thinks that he would here in the hospital if he stays any longer as he was feeling very claustrophobic. An attempt was made to educate the patient extensively on the need to stay here in the hospital and pursue further treatment for possible ampullary stricture versus mass. Patient stated that he understands completely his risk of leaving against medical advise but would like to do so anyways. Vital Signs/Physical Exam: Temp Pulse Resp BP Pulse Ox 97.8 F 67 16 157/88 H 98 02/25/19 08:00 02/25/19 08:00 02/25/19 08:00 02/25/19 08:00 02/25/19 08:00 General: Alert, In no apparent distress HEENT: Atraumatic, PERRLA, EOMI Neck: Supple, JVD not distended Respiratory: Clear to auscultation bilaterally, Normal air movement Cardiovascular: Regular rate/rhythm, Normal S1 S2 Gastrointestinal: Normal bowel sounds, No tenderness Musculoskeletal: No tenderness Integumentary: No rashes Neurological: Normal speech, Normal tone, Normal affect Lymphatics: No axilla or inguinal lymphadenopathy Laboratory Data at Discharge: WBC 6.0 K/uL (4.3-10.9) D 02/25/19 04:16 Hgb 11.7 g/dL (13.6-17.9) L 02/25/19 04:16 Hct 33.7 % (39.6-49.0) L 02/25/19 04:16 Plt Count 120 K/uL (152-406) L 02/25/19 04:16 PT 12.5 SECONDS (9.5-12.5) 02/23/19 10:27 INR 1.06 02/23/19 10:27 APTT 29.4 SECONDS (24.3-36.9) 02/23/19 10:27 Sodium 140 mmol/L (136-145) 02/25/19 04:16 Potassium 4.0 mmol/L (3.5-5.1) 02/25/19 04:16 BUN 11 mg/dL (7-18) 02/25/19 04:16 Creatinine 1.09 mg/dL (0.55-1.3) 02/25/19 04:16 Glucose 121 mg/dL (74-106) H 02/25/19 04:16 Phosphorus 3.3 mg/dL (2.5-4.9) 02/23/19 10:27 Magnesium 2.2 mg/dL (1.8-2.4) 02/23/19 10:27 Total Bilirubin 0.4 mg/dL (0.2-1.0) 02/25/19 04:16 AST 160 U/L (15-37) H 02/25/19 04:16 ALT 126 U/L (12-78) H 02/25/19 04:16 Alkaline Phosphatase 74 U/L (45-117) 02/25/19 04:16 Troponin I < 0.02 ng/mL (0.0-0.045) 02/23/19 10:27 Triglycerides 72 mg/dL (<150) 02/23/19 04:15 Cholesterol 162 mg/dL (<200) 02/23/19 04:15 HDL Cholesterol 56 mg/dL (40-60) 02/23/19 04:15 Cholesterol/HDL Ratio 2.89 02/23/19 04:15 Lipase 258 U/L (73-393) 02/23/19 10:27 Home Medications: NK [No Home Meds] 02/23/19
[2019-02-28 03:42] LABS: HBsAG Nonreactive (Nonreactive); Hepatitis A IgM Antibody Nonreactive
[2019-03-02 14:33] LABS: Hep C Virus RNA (PCR)log 5.97 log IU/mL
== END 2019-02-25 10:50 | disposition left against medical advice (07) | DRG 983 ==
LOC: ER 18:19 → ERHOLD 22:48 → 2ND 02-23 08:03
PROVIDERS: ADMIT Hospitalist; ATTEND Family Medicine
PROC: 0JQ00ZZ Repair Scalp Subcutaneous Tissue and Fascia, Open Approach (ICD-10-PCS; principal; 2019-02-22)
DX: R55 Syncope and collapse (principal); R94.5 Abnormal results of liver function studies; S01.01XA Laceration without foreign body of scalp, initial encounter; W18.39XA Other fall on same level, initial encounter; Y93.01 Activity, walking, marching and hiking; Y92.512 Supermarket, store or market as the place of occurrence of the external cause; Y99.8 Other external cause status; M25.461 Effusion, right knee; F17.290 Nicotine dependence, other tobacco product, uncomplicated; I95.9 Hypotension, unspecified; R00.1 Bradycardia, unspecified
CPT/HCPCS: 36415; 70450; 72125; 74181; 76700; 80048; 80053; 80061; 80074; 80076; 80307; 80329; 81003; 82378; 82550; 82553; 83690; 83735; 84100; 84484; 85025; 85610; 85730; 86301; 87522; 93005; 93306; 93880; 96374; 96375; 99285; J1650; J2405; J7030

== ENCOUNTER 2019-02-27 10:53 | Emergency (ER) | payer SELFPAY ==
--- OUTSIDE RECORDS SUMMARY | 2019-02-27 10:55 | XMS REPORT | Clinical Summary ---
:1960 Author Organization [facility] Address [address] [place] [address] Care Team Providers Name Role Phone Unavailable Primary Care Provider Unavailable Allergies Not on File Medications Not on file Active Problems Not on file Encounters Date Type Specialty Care Team Description 02/25/2019 Anesthesia Event Gastroenterology Regla Uriarte CRNA after 02/26/2018 Social History Tobacco Use Types Packs/Day Years Used Date Never Assessed Sex Assigned at Date Recorded Not on file Job Start Date Occupation Industry Not on file Not on file Not on file Travel History Travel Start Travel End No recent travel history available. Last Filed Vital Signs Not on file Plan of Treatment Not on file Results Not on fileafter 02/26/2018
--- NOTE | 2019-02-27 11:02 | EDPHYS ---
Physician Documentation [facility] Name: Jose Eduardo Cleary Age: 58 yrs Sex: Male : 1960 Arrival Date: 02/27/2019 Time: 10:55 Bed Waiting Private MD: ED Physician Jas Rausch HPI: 02/27 11:01 This 58 yrs old Black Male presents to ER via Ambulatory with complaints of Staple kb Removal. 11:01 The patient has keyla on the scalp. Previous treatment: The patient was initially kb treated 5 day(s) ago, the care was rendered at [facility], Treatment type: The patient's original treatment included keyla. Sutures/keyla progress: The patient has no c/o's. The wound is well-healing with no redness, swelling, discharge, or dehiscence reported. The patient has not experienced similar symptoms in the past. The patient has been recently seen at the [facility] Emergency Department, The patient has been recently been admitted at [facility], was discharged last week. Historical: - Allergies: 10:58 No Known Allergies; aa5 - PMHx: 10:58 None; aa5 - PSHx: 10:58 None; aa5 - Immunization history:: Adult Immunizations up to date. - Ebola Screening: : No symptoms or risks identified at this time. - Social history:: Smoking status: unknown. ROS: 11:01 Constitutional: Negative for fever, chills, and weight loss, Neck: Negative for injury, kb pain, and swelling, Cardiovascular: Negative for chest pain, palpitations, and edema, Respiratory: Negative for shortness of breath, cough, wheezing, and pleuritic chest pain, Abdomen/GI: Negative for abdominal pain, nausea, vomiting, diarrhea, and constipation, : Negative for injury, bleeding, discharge, and swelling, MS/Extremity: Negative for injury and deformity, Neuro: Negative for headache, weakness, numbness, tingling, and seizure. 11:01 Skin: Positive for laceration(s), of the scalp, keyla . Exam: 11:01 Constitutional: This is a well developed, well nourished patient who is awake, alert, kb and in no acute distress. Head/Face: Normocephalic, atraumatic. Chest/axilla: Normal chest wall appearance and motion. Nontender with no deformity. No lesions are appreciated. Cardiovascular: Regular rate and rhythm with a normal S1 and S2. No gallops, murmurs, or rubs. Normal PMI, no JVD. No pulse deficits. Respiratory: Lungs have equal breath sounds bilaterally, clear to auscultation and percussion. No rales, rhonchi or wheezes noted. No increased work of breathing, no retractions or nasal flaring. Abdomen/GI: Soft, non-tender, with normal bowel sounds. No distension or tympany. No guarding or rebound. No evidence of tenderness throughout. MS/ Extremity: Pulses equal, no cyanosis. Neurovascular intact. Full, normal range of motion. Neuro: Awake and alert, GCS 15, oriented to person, place, time, and situation. Cranial nerves II-XII grossly intact. Motor strength 5/5 in all extremities. Sensory grossly intact. Cerebellar exam normal. Normal gait. 11:01 Skin: Wound recheck: Staple laceration closure: the wound is healing well, the edges are well approximated, no evidence of dehiscence, no drainage, no erythema, no swelling. Vital Signs: 10:58 BP 168 / 95; Pulse 83; Resp 16 S; Temp 98.1(TE); Pulse Ox 98% on R/A; aa5 Procedures: 11:00 Suture/Staple removal: Removed 7 keyla, from scalp, site appears well healed, dressed kb with Neosporin, Patient tolerated well. MDM: 10:57 Patient medically screened. kb 11:00 Data reviewed: vital signs, nurses notes. Data interpreted: Pulse oximetry: on room air kb is 98 %. Interpretation: normal. Counseling: I had a detailed discussion with the patient and/or guardian regarding: the historical points, exam findings, and any diagnostic results supporting the discharge/admit diagnosis, the need for outpatient follow up, a family practitioner, to return to the emergency department if symptoms worsen or persist or if there are any questions or concerns that arise at home. Administered Medications: No medications were administered Disposition: 02/28 08:53 Co-signature as Attending Physician, Jas Rausch MD I agree with the assessment and samson plan of care. Disposition: 02/27/19 11:01 Discharged to Home. Impression: Encounter for removal of sutures - keyla. - Condition is Stable. - Discharge Instructions: Suture Removal, Care After. - Medication Reconciliation Form, Thank You Letter, Antibiotic Education, Prescription Opioid Use, Work release form form. - Follow up: Emergency Department; When: As needed; Reason: Worsening of condition. Follow up: Private Physician; When: 2 - 3 days; Reason: Recheck today's complaints, Continuance of care, Re-evaluation by your physician. Signatures: Alta Johnson, [employer] Jas Rausch MD MD cha Calderon, Audri, RN RN aa5 Adenike Shook RN RN ss Corrections: (The following items were deleted from the chart) 02/27 11:04 11:01 02/27/2019 11:01 Discharged to Home. Impression: Encounter for removal of sutures ss - keyla. Condition is Stable. Forms are Work release form, Medication Reconciliation Form, Thank You Letter, Antibiotic Education, Prescription Opioid Use. Follow up: Emergency Department; When: As needed; Reason: Worsening of condition. Follow up: Private Physician; When: 2 - 3 days; Reason: Recheck today's complaints, Continuance of care, Re-evaluation by your physician. kb
--- NOTE | 2019-02-27 11:02 | ER ---
Nurse's Notes [facility] Name: Jose Eduardo Cleary Age: 58 yrs Sex: Male : 1960 Arrival Date: 02/27/2019 Time: 10:55 Bed Waiting Private MD: Diagnosis: Encounter for removal of sutures-keyla Presentation: 02/27 10:57 Presenting complaint: Patient states: "I got the keyla on my head put in on Thursday". aa5 Pt reports need for staple removal. Transition of care: patient was not received from another setting of care. Onset of symptoms was February 27, 2019. Risk Assessment: Do you want to hurt yourself or someone else? Patient reports no desire to harm self or others. Initial Sepsis Screen: Does the patient meet any 2 criteria? No. Patient's initial sepsis screen is negative. Does the patient have a suspected source of infection? No. Patient's initial sepsis screen is negative. Care prior to arrival: None. 10:57 Method Of Arrival: Ambulatory aa5 10:57 Acuity: JAZIEL 4 aa5 Historical: - Allergies: 10:58 No Known Allergies; aa5 - PMHx: 10:58 None; aa5 - PSHx: 10:58 None; aa5 - Immunization history:: Adult Immunizations up to date. - Ebola Screening: : No symptoms or risks identified at this time. - Social history:: Smoking status: unknown. Screenin:01 Abuse screen: Denies threats or abuse. Denies injuries from another. Nutritional ss screening: No deficits noted. Tuberculosis screening: Never had TB. Fall Risk Fall in past 12 months (25 points). No IV (0 pts). Ambulatory Aid- None/Bed Rest/Nurse Assist (0 pts). Gait- Normal/Bed Rest/Wheelchair (0 pts) Mental Status- Oriented to own ability (0 pts). Assessment: 11:00 Reassessment: 7 keyla removed from back of head by JOE Wolff. No s/s of infection aa5 noted to site . 11:03 Reassessment: Patient appears in no apparent distress at this time. Patient and/or ss family updated on plan of care and expected duration. Pain level reassessed. Patient is alert, oriented x 3, equal unlabored respirations, skin warm/dry/pink. Patient denies pain at this time. Pain: Denies pain. Neuro: Level of Consciousness is awake, alert, obeys commands, Oriented to person, place, time, situation. Respiratory: Airway is patent Respiratory effort is even, unlabored, Respiratory pattern is regular, symmetrical. EENT: Oral mucosa is moist. Throat is clear. Derm: Skin is intact, is healthy with good turgor, Skin is pink, warm \\T\\ dry. normal. Musculoskeletal: Circulation, motion, and sensation intact. Range of motion: intact in all extremities, Swelling absent. Vital Signs: 10:58 BP 168 / 95; Pulse 83; Resp 16 S; Temp 98.1(TE); Pulse Ox 98% on R/A; aa5 ED Course: 10:55 Patient arrived in ED. as 10:56 Alta Johnson FNP-C is [facility]. kb 10:56 Jas Rausch MD is Attending Physician. kb 10:57 Triage completed. aa5 10:57 Arm band placed on. aa5 11:01 Patient has correct armband on for positive identification. ss 11:01 No provider procedures requiring assistance completed. Patient did not have IV access ss during this emergency room visit. Removal of Removed keyla from scalp Keyla site is well healed Patient tolerated well. Administered Medications: No medications were administered Outcome: 11:01 Discharge ordered by . kb 11:01 Discharged to home ambulatory. ss 11:01 Condition: good 11:01 Instructed on follow up and referral plans. 11:01 No charge visit due to suture removal. 11:04 Patient left the ED. ss Signatures: Alta Johnson FNP-C FNP-Lesley Felix as Eufemia Espinoza, RN RN aa5 Adenike Shook RN RN ss
== END 2019-02-27 11:04 | disposition home or self-care (01) ==
LOC: ER 10:53
DX: Z48.02 Encounter for removal of sutures (principal)